=== PATIENT | female | born 1940 | race African-American/Black ===

== ENCOUNTER 2017-10-03 14:00 | Inpatient (IN) | payer MEDICARE, OTHER ==
[~2017-10-03] VITALS: Ht 165.1 cm; Wt 75.7 kg
[2017-10-03 14:47] LABS: BG BASE EXCESS -3.9 mmol/L (-2.0-2.0); BG CARBOXYHEMOGLOBIN 0.3 % (0.5-1.5); BG HCO3 ACT 18.2 mmol/L (22.0-26.0); BG METHEMOGLOBIN 0.8 % (0.0-1.5); BG OXYHEMOGLOBIN 97.9 % (94.0-97.0); BG PCO2 24.2 mmHg (35.0-45.0); BG PH 7.495 (7.350-7.450); BG PO2 210.3 mmHg (75.0-100.0); BG SAMPLE SITE RIGHT BRACHIAL; BG TOTAL HEMOGLOBIN 9.7 g/dL (12.0-18.0); BG VENT MODE NASAL CANNULA
[2017-10-03] MEDS ORDERED: SODIUM CHLORIDE 0.9% 1,000 ML IV ONE (15:05)
[2017-10-03 15:11] LABS: BASOPHILS % 0.3 % (0.0-2.0); EOSINOPHILS % 0.1 % (0.0-5.0); HEMATOCRIT. 28.6 % (36.0-48.0); HEMOGLOBIN. 9.1 g/dL (12.0-16.0); LYMPHOCYTES % 9.2 % (20.0-50.0); MEAN CORPUSCULAR HEMOGLOBIN 19.9 pg (28.0-32.0); MEAN PLATELET VOLUME 7.5 fl (7.4-10.4); MONOCYTES % 8.4 % (2.0-8.0); PLATELET 522 x1000/uL (130-400); RED BLOOD CELL COUNT 4.54 mill/uL (4.2-5.4); RED CELL DISTRIBUTION WIDTH 21.2 % (11.6-14.6)
[2017-10-03] MEDS ORDERED: DILTIAZEM HCL 5MG/ML 5ML VIAL IV ONE (15:15)
[2017-10-03 15:16] LABS: INR 1.1; PROTHROMBIN TIME 11.1 sec (9.4-11.6)
[2017-10-03] MEDS ORDERED: DILTIAZEM HCL 60MG TABLET PO ONE (15:30)
[2017-10-03 15:31] LABS: CARBON DIOXIDE 22 mEq/L (21-32); CHLORIDE 101 mEq/L (98-107)
[2017-10-03 15:51] LABS: T4 FREE 0.58 ng/dL (0.76-1.46)
[2017-10-03 16:34] LABS: CLARITY URINE CLEAR (CLEAR); COLOR URINE YELLOW (YELLOW); GLUCOSE URINE NEGATIVE (NEGATIVE); KETONES URINE 2+ (NEGATIVE); LEUKOCYTE ESTERASE URINE 2+ (NEGATIVE); NITRITE URINE NEGATIVE (NEGATIVE); OCCULT BLOOD URINE 1+ (NEGATIVE); PROTEIN URINE NEGATIVE (NEGATIVE); SPECIFIC GRAVITY URINE 1.016 (1.005-1.030)
[2017-10-03 16:37] LABS: PLATELET ESTIMATE MARKEDLY INCREASED
[2017-10-03] MEDS ORDERED: CEFTRIAXONE 1 G PREMIX 50 ML IV ONE (17:15)
[2017-10-03] MEDS ORDERED: DIPHENHYDRAMINE 50MG/ML VIAL IV PRN (17:45)
[2017-10-03] MEDS ORDERED: MAGNESIUM/ALUMINUM HYDROXIDE/SIMETHICONE 30ML UDC PO PRN (17:45)
[2017-10-03] MEDS ORDERED: ONDANSETRON HCL 4MG/2ML VIAL IV PRN (17:45)
[2017-10-03] MEDS ORDERED: GUAIFENESIN 200MG/10ML SUGAR FREE UDC PO PRN (17:45)
[2017-10-03] MEDS ORDERED: ACETAMINOPHEN 325MG TABLET PO PRN (17:45)
[2017-10-03] MEDS ORDERED: LORAZEPAM 0.5MG TABLET PO PRN (17:45)
[2017-10-03] MEDS ORDERED: NITROGLYCERIN 0.4MG TABLET SL SL PRN (17:45)
[2017-10-03] MEDS ORDERED: NA PHOS,M-B/NA PHOS,DI-BA ENEMA 118ML PR PRN (17:45)
[2017-10-03] MEDS ORDERED: TRAMADOL 50MG TABLET PO PRN (17:45)
[2017-10-03] MEDS ORDERED: CLONIDINE 0.1MG TABLET PO PRN (17:45)
[2017-10-03] MEDS ORDERED: ZOLPIDEM TARTRATE 5MG TABLET PO PRN (17:45)
[2017-10-03] MEDS ORDERED: IPRATROPIUM/ALBUTEROL 0.5-3(2.5)MG/3ML NEB INH PRN (17:45)
[2017-10-03] MEDS ORDERED: DOCUSATE SODIUM 100MG CAPSULE PO PRN (17:45)
[2017-10-03] MEDS ORDERED: DILTIAZEM HCL 60MG TABLET PO SCH (18:00)
[2017-10-03] MEDS ORDERED: POTASSIUM CHLORIDE 20MEQ TABLET SR PO ONE (18:15)
[2017-10-03 18:52] LABS: VITAMIN B12 SERUM > 2000 pg/mL (211-911)
[2017-10-03 19:30] VITALS: BP 133/74
[2017-10-03 20:00] VITALS: BP 133/74
[2017-10-03] MEDS: LISINOPRIL 20MG TABLET PO SCH (20:59)
[2017-10-03] MEDS: MORPHINE SULFATE 2 MG/ML CPJ (NOT FOR IM USE) IV PRN (21:00)
[2017-10-03] MEDS ORDERED: LEVOFLOXACIN 500MG PREMIX 100 ML IV NR (21:00)
[2017-10-03] MEDS: DILTIAZEM HCL 60MG TABLET PO SCH (22:58)
[2017-10-04] VITALS: BP 127/63
[2017-10-04] MEDS: MORPHINE SULFATE 2 MG/ML CPJ (NOT FOR IM USE) IV PRN (01:44)
[2017-10-04 02:42] LABS: CREATINE KINASE MB FRACTION 2.5 ng/mL (0.5-3.6); TROPONIN I 0.06 ng/mL (0.00-0.04)
[2017-10-04 04:00] VITALS: BP 113/59
[2017-10-04] MEDS: DILTIAZEM HCL 60MG TABLET PO SCH ×3 (05:59→17:43)
[2017-10-04] MEDS: LEVOTHYROXINE SODIUM 50MCG TABLET PO SCH (05:59)
[2017-10-04 06:45] LABS: *AMPHETAMINES SCREEN URINE NEGATIVE (NEGATIVE); *BARBITURATES SCREEN URINE NEGATIVE (NEGATIVE); *BENZODIAZEPINES SCREEN URINE NEGATIVE (NEGATIVE); *COCAINE SCREEN URINE NEGATIVE (NEGATIVE); CANNABINOID URINE SCREEN NEGATIVE (NEGATIVE); METHADONE URINE SCREEN NEGATIVE (NEGATIVE); OPIATES URINE SCREEN PRESUMTIVE POSITIVE (NEGATIVE); PHENCYCLIDINE URINE SCREEN NEGATIVE (NEGATIVE)
[2017-10-04 08:00] VITALS: BP 110/61
[2017-10-04] MEDS ORDERED: CEFTRIAXONE 1 G PREMIX 50 ML IV SCH (09:00)
[2017-10-04] MEDS ORDERED: EZ-HD SUSPENSION(BARIUM SULFATE 340GM) PO ONE (09:17)
[2017-10-04] MEDS ORDERED: BARIUM SULFATE 450ML ORAL SUSP ONE (10:29)
[2017-10-04] MEDS: LISINOPRIL 20MG TABLET PO SCH ×2 (10:47→20:31)
[2017-10-04] MEDS: ASPIRIN 325MG EC TABLET PO SCH (10:47)
[2017-10-04] MEDS: FAMOTIDINE 20MG/2ML VIAL IV SCH (10:48)
[2017-10-04] MEDS: ENOXAPARIN 40MG/0.4ML SYR SUBCUT SCH (10:49)
[2017-10-04 12:00] VITALS: BP 127/53
[2017-10-04 12:04] LABS: CREATINE KINASE MB FRACTION 2.3 ng/mL (0.5-3.6); TROPONIN I 0.04 ng/mL (0.00-0.04)
[2017-10-04] MEDS: LEVOFLOXACIN 250MG PREMIX 50 ML IV SCH (15:10)
[2017-10-04 16:00] VITALS: BP 139/76
[2017-10-04 20:00] VITALS: BP 140/64
[2017-10-05] VITALS: BP 109/51
[2017-10-05 03:47] VITALS: BP 117/53
[2017-10-05] MEDS: DILTIAZEM HCL 60MG TABLET PO SCH ×3 (05:04→13:01)
[2017-10-05 06:30] LABS: BASOPHILS % 0.2 % (0.0-2.0); EOSINOPHILS % 0.4 % (0.0-5.0); HEMATOCRIT. 22.4 % (36.0-48.0); HEMOGLOBIN. 7.1 g/dL (12.0-16.0); LYMPHOCYTES % 15.6 % (20.0-50.0); MEAN CORPUSCULAR HEMOGLOBIN 19.7 pg (28.0-32.0); MEAN CORPUSCULAR VOLUME 62.2 fL (81.0-99.0); MEAN PLATELET VOLUME 7.7 fl (7.4-10.4); MONOCYTES % 7.7 % (2.0-8.0); NEUTROPHILS % 76.1 % (40.0-76.0); PLATELET 424 x1000/uL (130-400); RED CELL DISTRIBUTION WIDTH 21.5 % (11.6-14.6)
[2017-10-05] MEDS: LEVOTHYROXINE SODIUM 50MCG TABLET PO SCH (06:34)
[2017-10-05 07:10] LABS: CARBON DIOXIDE 22 mEq/L (21-32); CHLORIDE 103 mEq/L (98-107)
[2017-10-05 08:00] VITALS: BP 122/52
[2017-10-05] MEDS: FAMOTIDINE 20MG/2ML VIAL IV SCH (08:28)
[2017-10-05] MEDS: LISINOPRIL 20MG TABLET PO SCH (08:28)
[2017-10-05] MEDS: ASPIRIN 325MG EC TABLET PO SCH (08:28)
[2017-10-05] MEDS: ENOXAPARIN 40MG/0.4ML SYR SUBCUT SCH (08:28)
[2017-10-05] MEDS ORDERED: CEFTRIAXONE 1 G PREMIX 50 ML IV SCH (09:00)
[2017-10-05] MEDS ORDERED: LACTULOSE 20G/30ML UDC PO SCH (10:30)
[2017-10-05 12:00] VITALS: BP 131/59
[2017-10-05] MEDS: LEVOFLOXACIN 250MG PREMIX 50 ML IV SCH (14:25)
[2017-10-05 16:00] VITALS: BP_SYST 123; BP_SYST 125; BP_DIAS 51
[2017-10-05 17:38] VITALS: BP 123/51
== END 2017-10-05 19:35 | disposition short-term general hospital (02) | DRG 871 ==
LOC: ER 14:10 → 5WST 17:29 → EDBEDREQ 17:31 → EDBEDREQTM 17:31 → ENRESERV 17:37 → SUPCPDRO 17:38 → 5WST 19:20
PROVIDERS: ADMIT Internal Medicine; ATTEND Internal Medicine
DX: A41.9 Sepsis, unspecified organism (principal); E43 Unspecified severe protein-calorie malnutrition; E87.5 Hyperkalemia; R13.10 Dysphagia, unspecified; I47.1 Supraventricular tachycardia; E05.90 Thyrotoxicosis, unspecified without thyrotoxic crisis or storm; I11.9 Hypertensive heart disease without heart failure; N39.0 Urinary tract infection, site not specified; D50.9 Iron deficiency anemia, unspecified; E87.6 Hypokalemia; E03.9 Hypothyroidism, unspecified; K20.9 Esophagitis, unspecified; K44.9 Diaphragmatic hernia without obstruction or gangrene; R29.6 Repeated falls; Z68.27 Body mass index [BMI] 27.0-27.9, adult; I25.2 Old myocardial infarction
CPT/HCPCS: 36415; 36600; 71010; 74220; 80053; 80061; 80305; 81001; 82375; 82550; 82553; 82607; 82746; 82805; 83036; 83540; 83550; 83605; 84439; 84443; 84484; 85025; 85610; 87040; 87086; 92610; 93005; 93306; 93970; 96361; 96365; 96375; 99291; J0696; J1650; J1956; J2270; J3490; J7030; J7040; A4315